=== PATIENT | male | born 1980 | race Caucasian/White ===

== ENCOUNTER 2018-04-28 16:29 | Emergency (ER) | payer SELFPAY ==
[2018-04-28 16:34] VITALS: BP 155/97; PULSE 84; RESP 20; TEMP 36.4; O2SAT 95; BMI 31.0
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
[2018-04-28] MEDS: TET,DIPH,PERTUSS(ACELL),VAC/PF 0.5 ML SYRINGE IM (16:51)
[2018-04-28 17:00] VITALS: BP 149/87; PULSE 85; RESP 16; TEMP 36.9; O2SAT 98
[2018-04-28 17:11] VITALS: BP 149/87; PULSE 85; RESP 16; TEMP 36.9; O2SAT 100
== END 2018-04-28 17:12 | disposition home or self-care (01) ==
LOC: ED 17:00
PROVIDERS: Emergency Provider Emergency Medicine; Family Provider Family Medicine; PCP Family Medicine
DX: S01.81XA Laceration without foreign body of other part of head, initial encounter (principal); V18.2XXA Unspecified pedal cyclist injured in noncollision transport accident in nontraffic accident, initial encounter
CPT/HCPCS: 12002; 90471; 99282; 90715

== ENCOUNTER 2021-05-06 00:10 | Emergency (ER) | payer OTHER, SELFPAY ==
[2021-05-06 00:29] VITALS: BP 136/64; PULSE 96; RESP 17; TEMP 36.4; O2SAT 96; BMI 29.2
[2021-05-06] MEDS: MORPHINE 4 MG/ML INJ SUBCUT (01:35)
--- NOTE | 2021-05-06 01:35 | ED.LOWEXIN ---
HPI - Extremity Injury (Lower) General Chief Complaint: Extremity Injury, Lower Stated Complaint: right leg pain thinks he pulled hamstring\ Time Seen by Provider: 05/06/21 01:25 Source: patient Mode of arrival: Wheelchair Limitations: no limitations History of Present Illness HPI Narrative: Patient is a 41-year-old male presents with right leg pain. He says he was on a balance board trying to get off when his legs in he did the splits. He is having intense right hamstring pain. He did not hear a pop. He is on able to extend his leg fully due to pain but he has no numbness or tingling unable to walk but he drove himself. He took ibuprofen and whiskey prior to arrival Related Data Previous Rx's Medication Instructions Recorded diazepam [Valium] 5 mg PO Q12HR PRN #10 tab 05/06/21 hydrocodone-acetaminophen 1 tab PO Q6H PRN #10 tab 05/06/21 Allergies Allergy/AdvReac Type Severity Reaction Status Date / Time No Known Drug Allergies Allergy Verified 05/06/21 00:28 Review of Systems Review of Systems Narrative: GENERAL: Denies chills,fever HEENT: Denies throat pain RESPIRATORY: Denies dyspnea, cough, wheezing CARDIOVASCULAR: Denies chest pain, palpitations GASTROINTESTINAL: Denies nausea, vomiting MUSCULOSKELETAL: See HPI SKIN: No rash, no laceration, no pruritus NEUROLOGIC: Denies weakness, dizziness, headache, numbness 8 point review of systems is negative except for those stated above and HPI Patient History Social History Smoking Status: Current every day smoker Smoking Status: Current every day smoker alcohol intake frequency: 0-2 drinks per day Substance Use Type: does not use Exam Initial Vital Signs Initial Vital Signs: Vital Signs Temperature 97.5 F L 05/06/21 00:29 Pulse Rate 96 H 05/06/21 00:29 Respiratory Rate 17 05/06/21 00:29 Blood Pressure 136/64 05/06/21 00:29 Pulse Oximetry 96 05/06/21 00:29 GENERAL: With year old male clutching right leg appears in pain CARDIOVASCULAR: peripheral pulses in tact, cap refill <2 sec RESPIRATORY: No respiratory distress, speaks in full sentences without difficulty EXTREMITIES: Normal range of motion, no clubbing or edema. Neurovascularly intact Right knee is flexed having pain new origin of hamstring he is able to extend the thumb but not completely secondary to pain. Distal pedal pulse intact. NEUROLOGICAL: Cranial nerves II through XII grossly intact. Normal gait and speech. SKIN: Warm, dry, no petechiae, no rashes or lesions. Course Orders Ordered: Discontinued Medications Diazepam (Diazepam 5 Mg Tablet) 5 mg PO NOW ONE Stop: 05/06/21 02:09 Last Admin: 05/06/21 02:23 Dose: 5 mg Documented by: NELSON Morphine Sulfate (Morphine 4 Mg/Ml Inj) 4 mg SUBCUT NOW ONE Stop: 05/06/21 01:26 Last Admin: 05/06/21 01:35 Dose: 4 mg Documented by: NELSON Vital Signs Vital signs: Vital Signs - 8 hr 05/06/21 00:29 05/06/21 05:46 Temperature 97.5 F L Pulse Rate 96 H 67 Respiratory Rate 17 Blood Pressure 136/64 131/74 Pulse Oximetry 96 98 MDM - Extremity Injury (Lower) MDM Narrative Medical decision making narrative: Patient is given subcu morphine and Valium in the emergency department. He is able to extend his knee more but position of comfort is with a flexed knee. No hip pain. No testicular pain. Mom I do not believe he ruptured his hamstring be his he is starting to move it more now the pain is more controlled. He is given crutches. Discharge Plan Departure Patient Disposition: Home Clinical Impression: Right hamstring muscle strain Qualifiers: Encounter type: initial encounter Qualified Code(s): S76.311A - Strain of muscle, fascia and tendon of the posterior muscle group at thigh level, right thigh, initial encounter Instructions: Hamstrings Strain Activity Restrictions/Additional Instructions: *You have been diagnosed with right hamstring strain *What to do: Recommend using crutches and increasing activity as tolerated. He may try ice or heat *Continue to take medications as directed [place] 1 tablet every 6 hours if needed for severe pain Motrin 800 mg every 8 hours if needed for [id number] pain Valium 5 mg every 12 clothes if needed for muscle spasm *Follow up with your primary care provider in 2-3 days *Return to ER if you should have increasing pain weakness or any new, worsening or concerning symptoms CONTROLLED SUBSTANCE DISCHARGE (Narcotoic/benzodiazepine/Flexeril/Phenergan) 1. You have been prescribed narcotic medications, it does have acetaminophen/Tylenol/paracetamol in it, DO NOT TAKE MORE THAN 4,00mg in 24 hours of Tylenol. TRAMADOL DOES NOT CONTAIN TYLENOL 2. Please understand that we cannot provide further refills of narcotics, benzodiazepines or controlled substances through the ED and her pain management will need to be through your provider. 3. While on these medications you cannot drive or operate heavy machinery. 4. You cannot sign legal documents or perform any duties such as this. 5. As long as you're taking opiate pain medications he should also be taking a stool softener such as Colace, Dulcolax, MiraLAX or prune juice, to help avoid constipation. Prescriptions: New hydrocodone-acetaminophen 5-325 mg tablet 1 tab PO Q6H PRN (Reason: pain) Qty: 10 RF: 0 diazepam [Valium] 5 mg tablet 5 mg PO Q12HR PRN (Reason: muscle spasm) Qty: 10 RF: 0 Referrals: Bg Foster MD [Primary Care Provider] -
[2021-05-06] MEDS: diazePAM 5 MG TABLET PO (02:23)
[2021-05-06 05:46] VITALS: BP 131/74; PULSE 67; O2SAT 98
== END 2021-05-06 06:19 | disposition home or self-care (01) ==
PROVIDERS: Emergency Provider Emergency Medicine; Family Provider Family Medicine; PCP Family Medicine
DX: S76.311A Strain of muscle, fascia and tendon of the posterior muscle group at thigh level, right thigh, initial encounter (principal); W19.XXXA Unspecified fall, initial encounter
CPT/HCPCS: 96372; 99283; J2270

== ENCOUNTER → 2021-05-19 16:20 | Outpatient (CLI) | payer OTHER, SELFPAY ==
[2021-05-19 17:11] LABS: Cholesterol 209 mg/dL (140-199); HDL Cholesterol 53 mg/dL (40-60); LDL Cholesterol Calculated 122 mg/dL (<100); Triglycerides 171 mg/dL (35-150)
== END ==
PROVIDERS: Family Provider Family Medicine; PCP Student in an Organized Health Care Education/Training Program; Referring Provider Student in an Organized Health Care Education/Training Program; Visit Provider Student in an Organized Health Care Education/Training Program
DX: Z13.220 Encounter for screening for lipoid disorders (principal)
CPT/HCPCS: 36415; 80061

== ENCOUNTER 2024-05-13 21:14 | Emergency (ER) | payer OTHER, SELFPAY ==
[2024-05-13 21:19] VITALS: BP 178/102; PULSE 91; RESP 18; TEMP 37.4; O2SAT 98; BMI 31.4
--- NOTE | 2024-05-13 22:06 | ED_ITS ---
HPI - Extremity Problem General Chief complaint: Extremity Problem,Nontraumatic Stated complaint: Lt knee pain Time Seen by Provider: 05/13/24 21:21 Source: patient Mode of arrival: Ambulatory History of Present Illness HPI Narrative: 44-year-old male with no significant past medical history presents with several days of left knee pain and swelling. 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 For the last several days he has had left knee pain and swelling. He went to the walk-in clinic, but due to the time he was referred to the emergency department. He states that after they looked at his leg they told him that he may have a blood clot. Patient states that the most of his pain is in the anterior part of his left knee. Patient denies recent surgeries or immobilizations, denies personal or family history of blood clots, denies tobacco use. States that after resting his left knee for several days he already feels improvement. Related Data Home Medications Medication Instructions Recorded Confirmed No Known Home Medications 05/13/24 Allergies Allergy/AdvReac Type Severity Reaction Status Date / Time No Known Drug Allergies Allergy Verified 05/13/24 18:12 Patient History Medical History Substance abuse (~2010) Carpal tunnel syndrome (~2010) Chicken pox (~1987) Family History Father Stroke Cirrhosis Social History Smoking Status: Former smoker Smoking Status: Former smoker alcohol intake frequency: 0-2 drinks per day Substance Use Type: does not use Exam Initial Vital Signs Initial Vital Signs: Vital Signs Temperature 99.3 F 05/13/24 21:19 Pulse Rate 91 H 05/13/24 21:19 Respiratory Rate 18 05/13/24 21:19 Blood Pressure 178/102 H 05/13/24 21:19 Pulse Oximetry 98 05/13/24 21:19 Oxygen Delivery Method Room Air 05/13/24 21:19 Const: Awake, alert, no acute distress, nontoxic appearing MSK: Atraumatic, full range of motion, minimal swelling anterior left knee, no warmth, no edema Skin: Warm, Dry, intact, no rashes Neuro: AO x3, CN II-XII grossly intact, moves all extremities Course Vital Signs Vital signs: Vital Signs - 8 hr 05/13/24 21:19 05/13/24 22:20 Temperature 99.3 F Pulse Rate 91 H 89 Respiratory Rate 18 18 Blood Pressure 178/102 H 160/94 H Pulse Oximetry 98 97 Oxygen Delivery Method Room Air Room Air MDM - Extremity (Nontraumatic) MDM Narrative Medical decision making narrative: Well-appearing patient with left knee pain and swelling. 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 He states that he was referred for DVT evaluation, but has no known DVT risk factors. Patient's exam and history more consistent with prepatellar bursitis. Patient counseled on presumptive diagnosis, I did offer to order an ultrasound if he was concerned that he may have a blood clot, however patient agreed that his symptoms are more consistent with a bursitis picture and declined ultrasound. Patient recommended to use Tylenol and ibuprofen as needed for pain. Placed in Saeid bandage for comfort. Supportive measures counseled for home. Discharge Plan Departure Patient Disposition: Home Clinical Impression: Knee joint pain Instructions: DI for Bursitis Activity Restrictions/Additional Instructions: Your history and exam today seem consistent with bursitis of your knee, or prepatellar bursitis. Treatment for this is conservative with anti- inflammatories such as ibuprofen, rest, warm compresses or ice as needed for comfort. At work wear supportive knee cushions to prevent irritation of your knee bursa. Elevate your extremity at rest to help decrease swelling. Prescriptions: No Action No Known Home Medications Referrals: José Miguel Mcgraw MD [Primary Care Provider] - Stand Alone Forms: Patient Portal/API, Work Release Note
[2024-05-13 22:20] VITALS: BP 160/94; PULSE 89; RESP 18; O2SAT 97
== END 2024-05-13 22:19 | disposition home or self-care (01) ==
PROVIDERS: Emergency Provider Emergency Medicine; Family Provider Family Medicine; PCP Student in an Organized Health Care Education/Training Program
DX: M25.562 Pain in left knee (principal)
CPT/HCPCS: 99282